=== PATIENT | male | born 1990 | race African-American/Black ===

== ENCOUNTER 2020-08-15 16:21 | Emergency (ER) | payer OTHER ==
[~2020-08-15] VITALS: Ht 177.8 cm; Wt 83.9 kg
[2020-08-15 16:23] VITALS: Ht 177.8 cm; Wt 83.9 kg
[2020-08-15] MEDS ORDERED: IBU600 M2 PO (17:14)
== END 2020-08-15 17:26 ==
LOC: ED 16:21
DX: S93.401A Sprain of unspecified ligament of right ankle, initial encounter (principal); X58.XXXA Exposure to other specified factors, initial encounter; Y93.89 Activity, other specified; Y92.89 Other specified places as the place of occurrence of the external cause; Y99.8 Other external cause status

== ENCOUNTER 2020-08-15 16:21 | Emergency (ER) | payer OTHER ==
[2020-08-15] MEDS ORDERED: IBU600 M2 PO (17:14)
== END 2020-08-15 17:26 ==
LOC: ED 16:21
DX: Z02.89 Encounter for other administrative examinations (principal)